=== PATIENT | female | born 1940 | race Caucasian/White ===

== ENCOUNTER 2017-12-12 00:16 | Emergency (ER) | payer OTHER, MEDICARE ==
--- OUTSIDE RECORDS SUMMARY | 2017-12-12 00:19 | XMS REPORT | Clinical Summary ---
:1940 Author Organization [facility] Address [address] [place] [address] Care Team Providers Name Role Phone Danielle Licea Primary Care Provider Allergies No Known Allergies Current Medications Prescription Sig. Disp. Refills Start Date End Date Status levothyroxine Take 75 mcg by mouth Active (SYNTHROID, LEVOTHROID) every morning. 75 MCG tablet coenzyme Q10 100 mg Take 100 mg by mouth Active capsule daily. amlodipine-benazepril Take 1 capsule by Active (LOTREL) 10-40 mg per mouth daily. capsule folic acid (FOLVITE) 400 Take 400 mcg by Active MCG tablet mouth daily. multivitamin with Take 1 tablet by Active minerals tablet mouth daily. cyanocobalamin, vitamin Place 1 tablet under Active B-12, 2,500 mcg tablet, the tongue daily. sublingual metoprolol tartrate Take 50 mg by mouth Active (LOPRESSOR) 50 MG tablet 2 (two) times a day. Prescribed 1.5 tabs (75mg) 2 times daily. Patient takes 1 tablet 2 times daily VITAMIN B COMPLEX (B Take 1 tablet by Active COMPLEX ORAL) mouth daily. zinc 50 mg tablet Take 25 mg by mouth Active daily. ascorbic acid (VITAMIN Take 1,000 mg by Active C) 500 MG tablet mouth daily. LACTOBACILLUS Take 1 tablet by Active ACIDOPHILUS (ACIDOPHILUS mouth daily. ORAL) magnesium oxide (MAG-OX) Take 400 mg by mouth Active 400 mg tablet daily. Active Problems Problem Noted Date Pleural effusion, right 07/02/2016 Hiatal hernia 05/15/2016 Anemia 02/04/2016 Syncope 02/04/2016 H/O: upper GI bleed 02/04/2016 Essential hypertension 02/04/2016 Chronic diastolic congestive heart failure 02/04/2016 Iron deficiency anemia 02/04/2016 Peptic ulcer of stomach 10/02/2015 Upper gastrointestinal hemorrhage 09/17/2015 Adult body mass index greater than 30 09/17/2015 Hypothyroidism 09/17/2015 Gastrointestinal hemorrhage 09/16/2015 Encounters Date Type Specialty Care Team Description 08/16/2017 Abstract Cardiothoracic Surgery Jc Berkowitz MD after 12/11/2016 Social History Tobacco Use Types Packs/Day Years Used Date Never Assessed Sex Assigned at Date Recorded Not on file Last Filed Vital Signs Not on file Plan of Treatment Health Maintenance Due Date Last Done Comments COLONOSCOPY 1992 MAMMOGRAM 1992 ZOSTER VACCINE 2002 PNEUMOCOCCAL POLYSACCHARIDE VACCINE AGE 65 AND OVER 2007 PNEUMOCOCCAL-13 2007 INFLUENZA VACCINE 04/13/2017 Implants Implanted Type Area Gum Cook Device Expiration Model / Identifier Date Serial / Lot [facility] Vasclr Ptfe 1.2x10cm 1.65mm - [id number] Vascular N/A: N/A BARD PERIPHERAL [id number] / Implanted: 05/15/2016 (Quantity not on file) Graft VASCULAR / Results Not on fileafter 12/11/2016 Insurance Payer Benefit Plan / Group Subscriber ID Type Phone Address MEDICARE MEDICARE PART A AND B xxxxxxxxxx [place], [place] AARP AARP SUPPLEMENT xxxxxxxxxxx Commercial [phone] [address] [place] [address]
[2017-12-12 01:24] LABS: Absolute Lymphocytes (CBC) 0.7 K/uL (0.7-4.9); Absolute Monocytes 0.7 K/uL (0.1-1.3); Absolute Neutrophil 10.6 K/uL (1.8-8.0); Basophils % 0.4 % (0-1.3); Eosinophils % 0.1 % (0-4.4); Hematocrit 40.7 % (36.0-45.0); Lymphocytes % 5.5 % (15.3-44.8); MCH 29.4 pg (27.0-35.0); MCV 88.4 fL (80-100); MPV 9.4 fL (7.6-11.3); Monocytes % 5.7 % (3.3-12.3)
[2017-12-12] MEDS ORDERED: PANTOPRAZOLE 40 MG INJ ONE (01:35)
[2017-12-12] MEDS ORDERED: ONDANSETRON 4 MG/2 ML VIAL ONE (01:35)
[2017-12-12 01:50] LABS: Potassium 3.3 mEq/L (3.6-5.0)
[2017-12-12 01:56] LABS: Bilirubin Direct 0.2 mg/dL (0-0.2); Bilirubin Total 1.2 mg/dL (0.3-1.2); Magnesium 2.1 mg/dL (1.8-2.5); Protein, Total 7.7 g/dL (6.0-8.3)
[2017-12-12 01:59] LABS: CKMB Creatine Kinase MB 3.4 ng/ml (0.3-4.0)
[2017-12-12 02:28] LABS: Protime INR 1.22
[2017-12-12] MEDS ORDERED: NA CHLORIDE 0.9% 1,000 ML ONE (03:35)
[2017-12-12 03:57] LABS: Blood Morphology Comment NOT SEEN (NOT SEEN); Platelet Estimate ADEQ
[2017-12-12 04:22] LABS: Urine Blood 2+ (NEG); Urine Glucose NEGATIVE (NEG); Urine Protein TRACE (NEG); Urine Specific Gravity 1.015 (1.005-1.030); Urine pH 5.5 (5.0-7.0)
[2017-12-12] MEDS ORDERED: POTASSIUM 25 MEQ EFFERV TAB ONE (04:30)
[2017-12-12 04:34] LABS: Urine RBC <5 /HPF (NONE SEEN)
--- NOTE | 2017-12-12 04:34 | EDPHYS ---
Physician Documentation [facility] Name: Rona Michel Age: 77 yrs Sex: Female : 1940 Arrival Date: 12/12/2017 Time: 00:19 Bed 19 Private MD: Guido Al ED Physician Zan Melgoza HPI: 12/12 01:18 This 77 yrs old Female presents to ER via Wheelchair with complaints of cp Black/Tarry Stools, General Weakness, reflux. 01:18 The patient presents to the emergency department with dark stools. cp 01:18 Onset: The symptoms/episode began/occurred 5 day(s) ago. Context: the patient possible cp upper GI bleed. Associate signs and symptoms: Pertinent positives: fatigue, general weakness. yes, when diagnosed with anemia from upper GI bleed. Historical: - Allergies: 01:11 No Known Allergies; lp1 - Home Meds: 01:11 amlodipine-benazepril 10-40 mg Oral cap once daily [Active]; ascorbic acid (vitamin C) lp1 1,000 mg oral tab daily [Active]; B Complex Oral daily [Active]; coenzyme Q10 100 mg Oral cap daily [Active]; Vitamin B-12 2500 mcg Oral daily [Active]; folic acid 400 mcg Oral tab once daily [Active]; levothyroxine 75 mcg tab once daily [Active]; magnesium oxide 400 mg Oral cap daily [Active]; metoprolol tartrate 50 mg Oral tab once daily [Active]; zinc sulfate 220 (50) mg oral cap 110 mg daily [Active]; docusate sodium 100 mg Oral cap 2 times per day [Active]; - PMHx: 01:11 CHF; Hypertension; Melanoma; lp1 - PSHx: 01:11 Tonsillectomy; Bowel repair; lp1 - Immunization history:: Adult Immunizations up to date. - Social history:: Smoking status: Patient/guardian denies using tobacco. ROS: 01:25 Constitutional: Positive for fatigue, Negative for body aches, chills, fever, poor PO cp intake. 01:25 Eyes: Negative for injury, pain, redness, and discharge. cp 01:25 ENT: Negative for drainage from ear(s), ear pain, sore throat, difficulty swallowing, difficulty handling secretions. 01:25 Cardiovascular: Negative for chest pain, edema, palpitations. 01:25 Respiratory: Positive for shortness of breath, on exertion. Negative for cough, wheezing. 01:25 Abdomen/GI: Positive for abdominal pain, diarrhea, black/tarry stool, Negative for vomiting, constipation, anorexia. 01:25 Back: Negative for pain at rest, pain with movement, radiated pain. 01:25 : Negative for urinary symptoms. 01:25 Skin: Negative for cellulitis, rash. 01:25 Neuro: Negative for altered mental status, headache, syncope, near syncope. 01:25 All other systems are negative. Exam: 01:33 Constitutional: The patient appears in no acute distress, alert, awake, cp non-diaphoretic, non-toxic, well developed, well nourished, obese. 01:33 Head/Face: Normocephalic, atraumatic. cp 01:35 ECG was reviewed by the Attending Physician. cp 01:35 Eyes: Pupils equal round and reactive to light, extra-ocular motions intact. Lids and cp lashes normal. Conjunctiva and sclera are non-icteric and not injected. Cornea within normal limits. Periorbital areas with no swelling, redness, or edema. ENT: Nares patent. No nasal discharge, no septal abnormalities noted. Tympanic membranes are normal and external auditory canals are clear. Oropharynx with no redness, swelling, or masses, exudates, or evidence of obstruction, uvula midline. Mucous membranes moist. Neck: Trachea midline, no thyromegaly or masses palpated, and no cervical lymphadenopathy. Supple, full range of motion without nuchal rigidity, or vertebral point tenderness. No Meningismus. Chest/axilla: Normal chest wall appearance and motion. Nontender with no deformity. No lesions are appreciated. 01:35 Cardiovascular: Rate: normal, Rhythm: regular, Heart sounds: murmur, not appreciated, cp rub, not appreciated, gallop, not appreciated, Edema: is not appreciated, JVD: is not appreciated. 01:35 Respiratory: the patient does not display signs of respiratory distress, Respirations: normal, no use of accessory muscles, no retractions, no splinting, no tachypnea, labored breathing, is not present, Breath sounds: bronchial sounds, are not appreciated, decreased breath sounds, that are mild, are located in both bases, wheezing: is not appreciated. 01:35 Abdomen/GI: Inspection: obese Bowel sounds: active, all quadrants, Palpation: soft, in all quadrants, mild abdominal tenderness, in the epigastric area, rebound tenderness, is not appreciated, voluntary guarding, is not appreciated, involuntary guarding, is not appreciated. 01:35 Back: pain, is absent. 01:35 Skin: cellulitis, is not appreciated, no rash present. 01:35 Neuro: Orientation: to person, place \T\ time. Mentation: lucid, able to follow commands, Cerebellar function: is grossly normal, Motor: moves all fours, strength is normal, Sensation: no obvious gross deficits. Vital Signs: 00:58 BP 128 / 60; Pulse 70; Resp 18; Temp 98.8(O); Pulse Ox 97% on R/A; Weight 95.25 kg; lp1 Height 5 ft. 2 in. (157.48 cm); 01:47 BP 126 / 43; Pulse 70; Resp 14; Pulse Ox 99% on R/A; lp1 03:00 BP 107 / 82; Pulse 72; Resp 16; Pulse Ox 96% on R/A; lp1 04:00 BP 106 / 54; Pulse 72; Resp 16; Pulse Ox 97% on R/A; lp1 00:58 Body Mass Index 38.41 (95.25 kg, 157.48 cm) lp1 MDM: 00:40 Patient medically screened. cp 01:00 Differential diagnosis: peptic ulcer disease, gastritis, UTI, electrolyte abnormality, cp cardiac arrythmia. 04:25 Data reviewed: vital signs, nurses notes, lab test result(s), EKG, radiologic studies, cp CT scan, plain films. 04:25 Test interpretation: by ED physician or midlevel provider: ECG, plain radiologic cp studies. 04:45 Counseling: I had a detailed discussion with the patient and/or guardian regarding: the cp historical points, exam findings, and any diagnostic results supporting the discharge/admit diagnosis, lab results, radiology results, the need for outpatient follow up, an retail director, to return to the emergency department if symptoms worsen or persist or if there are any questions or concerns that arise at home. 04:45 Response to treatment: the patient's symptoms have mildly improved after treatment, and cp as a result, I will discharge patient. 14:53 ED course: Called and spoke with pt regarding Dr Olmos's CT findings and kb recommendation for MRI. Pt will follow up with Dr Al.. 12/12 00:50 Order name: Basic Metabolic Panel; Complete Time: 02:12 cp 12/12 02:12 Interpretation: Normal except: NA 130; K 3.3; CL 89; GLUC 137; CRE 1.02; GFR 53. cp 12/12 00:50 Order name: BNP; Complete Time: 02:12 cp 12/12 00:50 Order name: CBC with Diff; Complete Time: 04:04 cp 12/12 02:13 Interpretation: Normal except: WBC 12.1; MCV 88.4; FIONA% 88.3; LYM% 5.5; NEUT A 10.6. cp 12/12 00:50 Order name: Ckmb; Complete Time: 02:12 cp 12/12 00:50 Order name: CPK; Complete Time: 02:12 cp 12/12 00:50 Order name: LFT's; Complete Time: 02:12 cp 12/12 02:56 Interpretation: Normal except: GLOB 3.7. cp 12/12 00:50 Order name: Magnesium; Complete Time: 02:12 cp 12/12 00:50 Order name: PT-INR; Complete Time: 02:55 cp 12/12 02:56 Interpretation: PT 14.4; Reviewed. cp 12/12 00:50 Order name: Ptt, Activated; Complete Time: 02:55 cp 12/12 00:50 Order name: Troponin (emerg Dept Use Only); Complete Time: 02:12 cp 12/12 02:57 Interpretation: TROPED < 0.03; Reviewed. cp 12/12 00:50 Order name: Lipase; Complete Time: 02:12 cp 12/12 02:56 Interpretation: LIP 13; Reviewed. cp 12/12 00:50 Order name: Type And Screen; Complete Time: 14:46 cp 12/12 01:34 Order name: Manual Differential; Complete Time: 04:04 EDMS 12/12 04:04 Interpretation: Normal except: SEGS 83; BANDS [F] 5; LYM 4. cp 12/12 02:13 Order name: Urine Microscopic Only; Complete Time: 14:46 cp 12/12 00:50 Order name: XRAY Chest (1 view); Complete Time: 14:46 cp 12/12 00:50 Order name: EKG; Complete Time: 00:51 cp 12/12 00:50 Order name: Cardiac monitoring; Complete Time: 01:47 cp 12/12 00:50 Order name: EKG - Nurse/Tech; Complete Time: 01:47 cp 12/12 00:50 Order name: IV Saline Lock; Complete Time: 01:47 cp 12/12 00:50 Order name: Labs collected and sent; Complete Time: 01:47 cp 12/12 00:50 Order name: O2 Per Protocol; Complete Time: 01:47 cp 12/12 00:50 Order name: O2 Sat Monitoring; Complete Time: 01:47 cp 12/12 01:36 Order name: CT Abd/Pelvis - W/Contrast: black stools; Complete Time: 14:46 cp 12/12 03:25 Order name: Urine Dipstick--Ancillary (enter results); Complete Time: 04:23 rg2 12/12 04:24 Interpretation: Normal except: UBLD 2+; UESTR TRACE. cp 12/12 04:36 Order name: Urine Culture EDMS 12/12 00:50 Order name: Urine Dipstick-Ancillary (obtain specimen); Complete Time: 03:44 cp EC:35 Rate is 68 beats/min. Rhythm is regular. CO interval is normal. QRS interval is normal. cp QT interval is normal. No ST changes noted. Interpreted by me. Reviewed by me. Administered Medications: Discontinued: NS 0.9% 1000 ml IV at 1 bolus Per protocol; 1000 mL bolus 01:20 Drug: ProTONIX 40 mg Route: IVP; Site: right antecubital; lp1 03:43 Follow up: Response: No adverse reaction lp1 02:40 Not Given (Patient Refused): Zofran 4 mg IVP once; over 2 minutes lp1 03:15 Drug: NS 0.9% 1000 ml Route: IV; Rate: 1 bolus; Site: right antecubital; lp1 05:00 Drug: Potassium Effervescent Tablet 25 mEq Route: PO; lp1 05:01 Follow up: Response: Medication administered at discharge. lp1 05:01 Drug: LevaQUIN 750 mg Route: PO; lp1 05:01 Follow up: Response: Medication administered at discharge. lp1 Point of Care Testing: Guaiac: 01:13 Stool Guaiac: Negative; Stool Hemoccult Control: Pass; lp1 Disposition: 05:04 Co-signature as Attending Physician, Zan Melgoza MD. pkjennie Disposition: 12/12/17 04:33 Discharged to Home. Impression: Pneumonia due to other specified bacteria. - Condition is Stable. - Discharge Instructions: Pneumonia, Adult. - Prescriptions for Levaquin 750 mg Oral Tablet - take 1 tablet by ORAL route once daily for 10 days continue morning of 12-13-2017; 9 tablet. - Medication Reconciliation Form, Thank You Letter, Antibiotic Education, Prescription Opioid Use form. - Follow up: Guido Al MD; When: 48 Hours; Reason: Recheck today's complaints. - Problem is new. - Symptoms have improved. Signatures: Dispatcher [employer] EDMS Katy Munson, WRAPPER CASER-C WRAPPER CASER-Zan Aguirre MD MD pkl Aline Zuniga, RN RN lp1 Gabo Ledezma PA PA cp
--- NOTE | 2017-12-12 04:34 | ER ---
Nurse's Notes [facility] Name: Rona Michel Age: 77 yrs Sex: Female : 1940 Arrival Date: 12/12/2017 Time: 00:19 Bed 19 Private MD: Guido Al Diagnosis: Pneumonia due to other specified bacteria Presentation: 12/12 00:55 Presenting complaint: Patient states: Black stool x 5 days, with increased fatigue and lp1 shortness of breath on exertion; Hx of bowel repair. Transition of care: patient was not received from another setting of care. Onset of symptoms was December 12, 2017. Care prior to arrival: None. 00:55 Method Of Arrival: Wheelchair lp1 00:55 Acuity: ALICIA 3 lp1 Historical: - Allergies: 01:11 No Known Allergies; lp1 - Home Meds: 01:11 amlodipine-benazepril 10-40 mg Oral cap once daily [Active]; ascorbic acid (vitamin C) lp1 1,000 mg oral tab daily [Active]; B Complex Oral daily [Active]; coenzyme Q10 100 mg Oral cap daily [Active]; Vitamin B-12 2500 mcg Oral daily [Active]; folic acid 400 mcg Oral tab once daily [Active]; levothyroxine 75 mcg tab once daily [Active]; magnesium oxide 400 mg Oral cap daily [Active]; metoprolol tartrate 50 mg Oral tab once daily [Active]; zinc sulfate 220 (50) mg oral cap 110 mg daily [Active]; docusate sodium 100 mg Oral cap 2 times per day [Active]; - PMHx: 01:11 CHF; Hypertension; Melanoma; lp1 - PSHx: 01:11 Tonsillectomy; Bowel repair; lp1 - Immunization history:: Adult Immunizations up to date. - Social history:: Smoking status: Patient/guardian denies using tobacco. Screenin:22 Abuse screen: Denies threats or abuse. Denies injuries from another. Nutritional lp1 screening: No deficits noted. Tuberculosis screening: No symptoms or risk factors identified. Fall Risk None identified. Assessment: 01:21 General: Appears in no apparent distress. Behavior is calm, cooperative, appropriate lp1 for age. Pain: Complains of pain in chest Pain currently is 4 out of 10 on a pain scale. Aggravated by increased activity. Neuro: Level of Consciousness is awake, alert, obeys commands, Oriented to person, place, time, situation. Cardiovascular: Patient's skin is warm and dry. Rhythm is sinus rhythm. Respiratory: Airway is patent Respiratory effort is even, unlabored, Respiratory pattern is regular, symmetrical, Breath sounds are clear bilaterally. GI: Abdomen is non-distended, Bowel sounds present X 4 quads. Reports Black stools x5 days. : No signs and/or symptoms were reported regarding the genitourinary system. EENT: No signs and/or symptoms were reported regarding the EENT system. Derm: Skin is pink, warm \T\ dry. Musculoskeletal: Circulation, motion, and sensation intact. 02:36 Reassessment: Patient appears in no apparent distress at this time. No changes from lp1 previously documented assessment. Patient and/or family updated on plan of care and expected duration. Pain level reassessed. 03:45 Reassessment: Patient appears in no apparent distress at this time. Patient and/or lp1 family updated on plan of care and expected duration. Pain level reassessed. Patient resting, eyes closed, respirations unlabored. 05:03 Reassessment: Patient and/or family updated on plan of care and expected duration. Pain lp1 level reassessed. Patient is alert, oriented x 3, equal unlabored respirations, skin warm/dry/pink. Patient states feeling better. Vital Signs: 00:58 BP 128 / 60; Pulse 70; Resp 18; Temp 98.8(O); Pulse Ox 97% on R/A; Weight 95.25 kg; lp1 Height 5 ft. 2 in. (157.48 cm); 01:47 BP 126 / 43; Pulse 70; Resp 14; Pulse Ox 99% on R/A; lp1 03:00 BP 107 / 82; Pulse 72; Resp 16; Pulse Ox 96% on R/A; lp1 04:00 BP 106 / 54; Pulse 72; Resp 16; Pulse Ox 97% on R/A; lp1 00:58 Body Mass Index 38.41 (95.25 kg, 157.48 cm) lp1 ED Course: 00:19 Patient arrived in ED. am2 00:20 Guido Al MD is Private Physician. am2 00:40 Gabo Ledezma PA is PHCP. cp 00:40 Zan Melgoza MD is Attending Physician. cp 00:55 Aline Zuniga, RN is Primary Nurse. lp1 00:57 Triage completed. lp1 00:57 Arm band placed on left wrist. lp1 01:11 X-ray completed. Portable x-ray completed in exam room. Patient tolerated procedure la2 well. 01:11 XRAY Chest (1 view) In Process Unspecified. EDMS 01:12 Inserted saline lock: 18 gauge in right antecubital area, using aseptic technique. lp1 Blood collected. By tech. Bebeto 01:13 Served as a animal sticker during rectal exam. lp1 01:22 Patient has correct armband on for positive identification. Bed in low position. Call lp1 light in reach. cardiac monitor technician on. Pulse ox on. NIBP on. 02:[address] via stretcher. lp1 02:42 CT completed. Patient tolerated procedure well. bq 02:48 CT Abd/Pelvis - W/Contrast: black stools In Process Unspecified. EDMS 02:50 Patient moved back from CT. bq 04:32 Guido Al MD is Referral Physician. cp 05:03 IV discontinued, No redness/swelling at site. Pressure dressing applied. lp1 Administered Medications: Discontinued: NS 0.9% 1000 ml IV at 1 bolus Per protocol; 1000 mL bolus 01:20 Drug: ProTONIX 40 mg Route: IVP; Site: right antecubital; lp1 03:43 Follow up: Response: No adverse reaction lp1 02:40 Not Given (Patient Refused): Zofran 4 mg IVP once; over 2 minutes lp1 03:15 Drug: NS 0.9% 1000 ml Route: IV; Rate: 1 bolus; Site: right antecubital; lp1 05:00 Drug: Potassium Effervescent Tablet 25 mEq Route: PO; lp1 05:01 Follow up: Response: Medication administered at discharge. lp1 05:01 Drug: LevaQUIN 750 mg Route: PO; lp1 05:01 Follow up: Response: Medication administered at discharge. lp1 Point of Care Testing: Guaiac: 01:13 Stool Guaiac: Negative; Stool Hemoccult Control: Pass; lp1 Outcome: 04:33 Discharge ordered by . cp 05:07 Discharged to home ambulatory, with family. lp1 05:07 Condition: good 05:07 Discharge instructions given to patient, Instructed on discharge instructions, follow up and referral plans. medication usage, Demonstrated understanding of instructions, follow-up care, medications, Prescriptions given X 1. 05:12 Patient left the ED. lp1 Signatures: Dispatcher [employer] EDMariama Romo Laura RN RN lp1 Gabo Ledezma PA PA cp Moreno, Amanda am2 Heather Sherman2 Corrections: (The following items were deleted from the chart) 01:21 01:12 Inserted saline lock: 20 gauge in right antecubital area, using aseptic lp1 technique. Blood collected. By nelly Tate lp1
[2017-12-12 04:35] LABS: Urine Bacteria >50 /HPF (<20); Urine Culture Reflex Order REFLEXED
[2017-12-12] MEDS ORDERED: levoFLOXacin 750 MG TAB ONE (05:03)
[2017-12-12 05:15] VITALS: TEMP 98.8
[2017-12-12 05:18] VITALS: BP 106/54; O2SAT 97
--- NOTE | 2017-12-12 11:06 | RAD REPORT ---
EXAM DESCRIPTION: C[place]lle Single View12/12/2017 1:11 am CLINICAL HISTORY: Shortness of breath COMPARISON: CT scan on the same date FINDINGS: Right lower lobe opacities seen on the CT scan on the same date are not as well visualize d on this examination as they are obscured by heart. The left lung appears clear. The heart is borderline enlarged
--- NOTE | 2017-12-12 14:06 | RAD REPORT ---
EXAM DESCRIPTION: CT - Abdomen Pelvis W Contrast - 12/12/2017 9:05 am CLINICAL HISTORY: Abdominal pain with nausea and vomiting. Epigastric pain. Surgery date was months bowel resection COMPARISON: 2013 TECHNIQUE: Computed axial tomography of the abdomen pelvis was obtained. 100 cc Isovue-300 was admin istered intravenously. Oral contrast was not requested which limits evaluation of bowel.A preliminary report was generated by [employer] and reviewed prior to this dictation All CT scans are performed using dose optimization technique as appropriate and may include automated exposure control or mA/KV adjustment according to patient size. FINDINGS: A 3.8 centimeter enhancing lesion is present within the caudate lobe of the liver. It has enlarged from 2007 in which it measured 2.2 centimeters. It is equivocally slightly enlarged from the 2014 exam. Several small hepatic cysts are unchanged. Increased density within the gallbladder probably represents vicarious excretion of contrast. 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 Spleen, pancreas, adrenal and kidneys appear unremarkable. Diverticula stem from the colon without evidence diverticulitis. Appendix is normal. A right lower lobe consolidation is present. Mild right infrahilar lymphadenopathy is seen A right posterior diaphragmatic hernia contains fat. Postsurgical changes involve the stomach IMPRESSION: Right lower lobe consolidation consist with pneumonia. This should be followed until it has cleared to help exclude a post obstructive process/underlying mass. Mild right infrahilar lymphadenopathy 3.8 centimeter enhancing lesion within the caudate lobe of the liver is enlarged from 2008 and equivo macho slightly enlarged from 2014. It may represent an adenoma, hemangioma or other benign mass. A ma lignancy is doubtful. However, as it has enlarged it is recommended that the patient have an MRI of t he contrast with delayed images for further evaluation Cystic duct calculi. There is no evidence of cholecystitis. Examination was discussed with Katy Munson in the Emergency Room 2 p.m. on December 12, 2017
--- NOTE | 2017-12-13 07:11 | EKG ---
Test Date: 2017-12-12 Test Time: 01:27:27 Hospital Social Worker: SABI MEASUREMENT RESULTS: Intervals: Rate: 68 CO: 160 QRSD: 92 QT: 414 QTc: 440 [place]: P: 63 CO: 160 QRS: 7 T: 54 INTERPRETIVE STATEMENTS: Normal sinus rhythm normal ECG Compared to ECG 07/02/2016 13:12:42 no significant change from previous ECG Electronically Signed On 12-13-17 07:10:24 CDT by Alfred William
== END 2017-12-12 05:12 | disposition home or self-care (01) ==
LOC: ER 00:16
DX: J15.8 Pneumonia due to other specified bacteria (principal); R10.9 Unspecified abdominal pain; I10 Essential (primary) hypertension; I50.9 Heart failure, unspecified
CPT/HCPCS: 36415; 71045; 74177; 80048; 80076; 82550; 82553; 83690; 83735; 83880; 84484; 85025; 85610; 85730; 86850; 86900; 86901; 87086; 87088; 93005; 96374; 99285; C9113; J7030; Q9967; 81003; 81015; J2405

== ENCOUNTER 2020-10-18 07:42 | Day surgery (SDC) | payer OTHER, MEDICARE ==
--- OUTSIDE RECORDS SUMMARY | 2020-10-18 08:01 | XMS REPORT | Clinical Summary ---
:1940 Author Organization [facility] Address [address] [place] [address] Care Team Providers Name Role Phone Anuja Primary Care Provider Allergies No Known Active Allergies Medications Medication Sig Dispensed Refills Start Date End Date Status levothyroxine Take 75 mcg by 0 A ctive (SYNTHROID, mouth every LEVOTHROID) 75 MCG morning. tablet coenzyme Q10 100 mg Take 100 mg by 0 Active capsule mouth daily. amlodipine-benazepril Take 1 capsule by 0 Active (LOTREL) 10-40 mg per mouth daily. capsule folic acid (FOLVITE) Take 400 mcg by 0 Active 400 MCG tablet mouth daily. multivitamin with Take 1 tablet by 0 Active minerals tablet mouth daily. cyanocobalamin, Place 1 tablet 0 Active vitamin B-12, 2,500 under the tongue mcg tablet, sublingual daily. metoprolol tartrate Take 50 mg by 0 Active (LOPRESSOR) 50 MG mouth 2 (two) tablet times a day. Prescribed 1.5 tabs (75mg) 2 times daily. Patient takes 1 tablet 2 times daily VITAMIN B COMPLEX (B Take 1 tablet by 0 Active COMPLEX ORAL) mouth daily. zinc 50 mg tablet Take 25 mg by 0 Active mouth daily. ascorbic acid (VITAMIN Take 1,000 mg by 0 Active C) 500 MG tablet mouth daily. LACTOBACILLUS Take 1 tablet by 0 Active ACIDOPHILUS mouth daily. (ACIDOPHILUS ORAL) magnesium oxide Take 400 mg by 0 Active (MAG-OX) 400 mg tablet mouth daily. Active Problems Problem Noted Date Pleural effusion, right 07/02/2016 Hiatal hernia 05/15/2016 Anemia 02/04/2016 Syncope 02/04/2016 H/O: upper GI bleed 02/04/2016 Essential hypertension 02/04/2016 Chronic diastolic congestive heart failure 02/04/2016 Iron deficiency anemia 02/04/2016 Peptic ulcer of stomach 10/02/2015 Upper gastrointestinal hemorrhage 09/17/2015 Adult body mass index greater than 30 09/17/2015 Hypothyroidism 09/17/2015 Gastrointestinal hemorrhage 09/16/2015 Surgical History Surgery Date Site/Laterality Comments THYROIDECTOMY TONSILLECTOMY HYSTERECTOMY BREAST SURGERY REPAIR, HIATAL HERNIA, 05/15/2016 Abdomen/N/A Procedure : EGD, LAPAROSCOPIC LAPAROSCOPIC REPAIR OF HITAL HERNIA WITH TOUPET FUNDOPLIC ATION; Surgeon: Jc Berkowitz MD; Location: [facility]; Service: Thoraci c; Laterality: N/A; Medical devices from this surgery are in t he Implants section. Medical History Medical History Date Comments Hypertension CHF (congestive heart failure) (HCC) Melanoma (HCC) Anemia History of transfusion GI bleed Social History Tobacco Use Types Packs/Day Years Used Date Never Assessed Sex Assigned at Date Recorded Not on file Last Filed Vital Signs Not on file Plan of Treatment Health Maintenance Due Date Last Done Comments COVID-19 VACCINE (1 of 2) 1958 SHINGLES VACCINES (#1) 1992 65+ PNEUMOCOCCAL VACCINE (1 of 1 - PPSV23) 2007 INFLUENZA VACCINE 04/13/2020 Implants Implanted Type Area Impregnator And Drier Helper Device Shelf Model / Identifier Expiration Serial / Date Lot April Gallegos Vasclr Ptfe 1.2x10cm 1.65mm - [id number] Vascular N/A: N/A BARD PERIPHERAL [id number] / Implanted: 05/15/2016 at [facility] (Quantity not on file) Graft VASCULAR / Results Not on fileafter 10/18/2019 Insurance Payer Benefit Plan / Subscriber ID Effective Dates Phone Addre ss Type Group MEDICARE MEDICARE PART A [id number] 2007-Present [place] [facility] Medicare AND B AARP AARP SUPPLEMENT [id number] 2007-[employer] Commercial t Advance Directives For more information, please contact: [phone] Type Date Recorded Patient Free Lance 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
--- OUTSIDE RECORDS SUMMARY | 2020-10-18 08:03 | XMS REPORT | Continuity of Care Document ---
:1940 Author Organization [facility] t Address [address] [place] [address] [address] [place] [address] Care Team Providers Name Role Phone ANTONOFF Primary Care Physician Unavailable SAURABH Attending Clinician Unavailable EL Attending Clinician Unavailable BIBI Attending Clinician Unavailable BEST Attending Clinician Unavailable DAKSHA SAAVEDRA Attending Clinician Unavailable TRUDY Attending Clinician Unavailable Cristal SARAVIA Attending Clinician Unavailable SAMUEL Attending Clinician Unavailable DIMITRIS Attending Clinician Unavailable Nahid MAYS Attending Clinician Unavailable GIOVANNY Attending Clinician Unavailable AHSAN Attending Clinician Unavailable Jennifer WALKER Attending Clinician Unavailable JULIAN Attending Clinician Unavailable Xavier SAGE, Megan Attending Clinician DAKSHA SAAVEDRA Admitting Clinician Unavailable ANGUS Admitting Clinician Unavailable Megan Park MD Admitting Clinician Payers Payer Name Policy Type Policy Number Effective Date Expiration Date S maureen MEDICARE PART A [id number] 2007 AND B 00:00:00 AARP-SECONDARY [id number] 2007 ONLY 00:00:00 Problems Condition Condition Condition Status Onset Resolution Last Treating Co mments Source Name Details Category Date Date Treatment Clinician Date Pleural Pleural Disease Active 2015-09 [place] effusion, effusion, 0-20 Meth jeaneth right right 00:00: st 00 Hiatal Hiatal Disease Active [place] hernia hernia 9-02 [facility] 00:[facility]: st 00 Anemia Anemia Disease Active [place] 02-03 [facility] 00:00: st 00 Syncope Syncope Disease Active [place] 02-03 [facility] 00:00: st 00 H/O: upper H/O: upper Disease [facility] GI bleed GI bleed 5-24 Method i 00:00: st 00 Essential Essential Disease Active Trina ston hypertensi hypertensi 5-24 Me thodi on on 00:00: st 00 Chronic Chronic Disease Active [place] diastolic diastolic 5-24 Meth jeaneth congestive congestive 00:00: st heart heart 00 failure failure Iron Iron Disease Active [place] deficiency deficiency 5-24 Me thodi anemia anemia 00:00: st 00 Peptic Peptic Disease Active [place] ulcer of ulcer of 1-20 Method i stomach stomach 00:00: st 00 Upper Upper Disease Active [place] gastrointe gastrointe 1-05 Me thodi stinal stinal 00:00: st hemorrhage hemorrhage 00 Adult body Adult body Disease Active H [facility] mass index mass index 1-05 Me thodi greater greater 00:00: st than 30 than 30 00 Hypothyroi Hypothyroi Disease Active H [facility] dism dism 1-05 [facility] 00:00: st Gastrointe Gastrointe Disease Active H [facility] stinal stinal 1-04 [facility] hemorrhage hemorrhage 00:00: st 00 Allergies, Adverse Reactions, Alerts Allergy Allergy Status Severity Reaction(s) Onset Inactive Treating Comm ents Source Name Type Date Date Clinician OTHER Allergy Active [place] Sob 2019-0 MD 6-27 Anderso 00:00: n 00 OTHER Allergy Active High Sob 2019-0 MD 6-27 Anderso 00:00: n 00 OTHER Allergy Active [place] 2019-0 MD 6-27 Anderso 00:00: n 00 OTHER Allergy Active High Sob 2019-0 MD 6-27 Anderso 00:00: n 00 OTHER Allergy Active High Sob 2019-0 MD 6-27 Anderso 00:00: n 00 OTHER Allergy Active High Sob 2019-0 MD 6-27 Anderso 00:00: n 00 OTHER Allergy Active High Sob 2019-0 MD 6-27 Anderso 00:00: n 00 OTHER Allergy Active High Sob 2019-0 MD 6-27 Anderso 00:00: n 00 OTHER Allergy Active High Sob 2019-0 MD 6-27 Anderso 00:00: n 00 OTHER Allergy Active [place] Sob 2019-0 MD 6-27 Anderso 00:00: n 00 OTHER Allergy Active [place] 2019-0 MD 6- Anderso 00:00: n 00 OTHER Allergy Active High Sob MD 6- Anderso 00:00: n 00 Social History Social Habit Start Date Stop Date Quantity Comments Source Sex Assigned At Trina davila Muslim Medications Ordered Filled Start Stop Current Ordering Indication Dosage Frequency Signature Comments Components Source Medication Medication Date Date Medication? Clinician (SIG) Name Name levothyroxi 2015-09 Yes 75ug QD Take 75 Trina ston ne 0-22 mcg by [facility] (SYNTHROID, 13:47: mouth st LEVOTHROID) 33 every 75 MCG morning. tablet coenzyme 2015-09 Yes 100mg QD Take 100 [place] Q10 100 mg 0-22 mg by [facility] capsule 13:47: mouth st 33 daily. amlodipine- 2015-09 Yes 1{capsu QD Take 1 [place] benazepril 0-22 le} capsule by Met del angel (LOTREL) 13:47: mouth st 10-40 mg 33 daily. per capsule folic acid 2015-09 Yes 400ug QD Take 400 [place] (FOLVITE) 0-22 mcg by [facility] 400 MCG 13:47: mouth st tablet 33 daily. multivitami 2015-09 Yes 1{tbl} QD Take 1 [place] n with 0-22 tablet by [facility] minerals 13:47: mouth st tablet 33 daily. cyanocobala 2015-09 Yes 1{tbl} QD Place 1 [place] min, 0-22 tablet [facility] vitamin 13:47: under the st B-12, 2,500 33 tongue mcg tablet, daily. sublingual metoprolol 2015-09 Yes 50mg Q.5D Take 50 mg [place] tartrate 0-22 by mouth 2 Metho di (LOPRESSOR) 13:47: (two) st 50 MG 33 times a tablet day. Prescribed 1.5 tabs (75mg) 2 times daily. Patient takes 1 tablet 2 times daily VITAMIN B 2015-09 Yes 1{tbl} QD Take 1 [place] COMPLEX (B 0-22 tablet by Meth jeaneth COMPLEX 13:47: mouth st ORAL) 33 daily. zinc 50 mg 2015-09 Yes 25mg QD Take 25 mg [place] tablet 0-22 by mouth [facility] 13:47: daily. st 33 ascorbic 2015-09 Yes 1000mg QD Take 1,000 [place] acid 0-22 mg by [facility] (VITAMIN C) 13:47: mouth st 500 MG 33 daily. tablet LACTOBACILL 2015-09 Yes 1{tbl} QD Take 1 [place] US 0-22 tablet by [facility] ACIDOPHILUS 13:47: mouth st (ACIDOPHILU 33 daily. S ORAL) magnesium 2015-09 Yes 400mg QD Take 400 Trina ston oxide 0-22 mg by [facility] (MAG-OX) 13:47: mouth st 400 mg 33 daily. tablet Vital Signs Vital Name Observation Time Observation Value Comments Source WEIGHT 2020-10-02 05:33:14 101.4 kg HEIGHT 2020-09-23 21:51:00 154 cm WEIGHT 2020-09-02 14:55:00 94.9 kg HEIGHT 2020-09-02 10:29:39 157 cm WEIGHT 2020-09-02 10:29:39 94.45 kg HEIGHT 2020-08-26 09:00:26 157 cm WEIGHT 2020-08-26 09:00:26 95.3 kg HEIGHT 2020-08-05 14:37:03 157 cm WEIGHT 2020-08-05 14:37:03 94.4 kg WEIGHT 2020-08-05 13:04:00 94.4 kg WEIGHT 2020-07-29 12:13:23 95.1 kg HEIGHT 2020-07-29 08:33:37 157 cm WEIGHT 2020-07-29 08:33:37 95.3 kg WEIGHT 2020-07-29 10:05:39 95.3 kg WEIGHT 2020-07-22 05:41:00 106.6 kg HEIGHT 2020-07-15 21:12:00 157 cm HEIGHT 2020-07-15 08:25:00 157 cm WEIGHT 2020-07-15 08:25:00 99.8 kg WEIGHT 2020-07-12 10:30:00 98.1 kg HEIGHT 2020-07-12 08:02:00 157 cm WEIGHT 2020-07-12 08:02:00 98.1 kg WEIGHT 2020-07-10 11:26:00 98.1 kg HEIGHT 2020-07-10 09:37:00 157 cm WEIGHT 2020-07-10 09:37:00 97.7 kg WEIGHT 2020-07-08 10:30:00 97.2 kg HEIGHT 2020-07-08 08:30:48 157 cm WEIGHT 2020-07-08 08:30:48 97.2 kg HEIGHT 2020-06-12 09:19:53 157 cm WEIGHT 2020-06-12 09:19:53 97.4 kg WEIGHT 2020-05-22 13:05:00 99.1 kg HEIGHT 2020-05-22 09:31:55 157 cm WEIGHT 2020-05-22 09:31:55 98.6 kg HEIGHT 2020-04-24 08:05:50 157 cm WEIGHT 2020-04-24 08:05:50 99 kg HEIGHT 2020-04-17 09:47:00 157 cm WEIGHT 2020-04-17 09:47:00 99.4 kg WEIGHT 2020-04-17 13:33:48 99.4 kg HEIGHT 2020-04-01 11:05:41 157 cm WEIGHT 2020-04-01 11:05:41 99.7 kg WEIGHT 2020-03-20 10:32:00 100.8 kg WEIGHT 2020-03-20 00:00:00 100.8 kg HEIGHT 2020-03-20 00:00:00 157 cm WEIGHT 2020-03-20 00:00:00 100.5 kg Procedures This patient has no known procedures. Plan of Care Planned Activity Planned Date Details Comments Source Future Scheduled 2020-04-13 INFLUENZA VACCINE [place] [facility] 00:00:00 [code = INFLUENZA VACCINE] Future Scheduled 2007 65+ PNEUMOCOCCAL [place] [facility] 00:00:00 VACCINE (1 of 1 - PPSV23) [code = 65+ PNEUMOCOCCAL VACCINE (1 of 1 - PPSV23)] Future Scheduled 1992 SHINGLES VACCINES (#1) [place] [facility] 00:00:00 [code = SHINGLES VACCINES (#1)] Future Scheduled 1958 COVID-19 VACCINE (1 of [place] [facility] 00:00:00 2) [code = COVID-19 VACCINE (1 of 2)] Encounters Start End Encounter Admission Attending Care Care Encounter Source Date/Time Date/Time Type Type Clinicians Facility Department ID 2020-04-15 Outpatient ROSANA WAYNE [id number] 14:16:23 Anderso n 2020-03-09 Outpatient PATRICIA WILEY MDA, MDA [id number] 08:05:07 Anderso n 2020-10-12 2020-10-12 Outpatient MIRNA GALLEGOS MDA MDA [id number] 11:09:09 11:26:53 DEVI yao 2020-09-23 2020-10-02 Inpatient ER BIBI, MDA ICT Phase 1 1 [id number] 15:22:00 16:19:00 YING Anderson o najma 2020-10-01 2020-10-01 Inpatient BEST, MDA MDA [id number] 11:10:11 16:41:36 DOROTA yao 2020-09-30 2020-09-30 Inpatient BIBI, MDA MDA [id number] 18:59:04 19:29:30 YING yao 2020-09-24 2020-09-24 Inpatient RODON MDA MDA [id number] MD 03:33:45 03:50:06 Justin SAAVEDRA 2020-09-02 2020-09-02 Outpatient EL SAURABH, PATRICIA MDA MDA [id number] 11:30:00 23:59:00 Justinsanti yao 2020-09-02 2020-09-02 Outpatient EL SAURABH, PATRICIA MDA MDA [id number] 10:25:11 12:58:05 Justin o najma 2020-09-02 2020-09-02 Outpatient EL SAURABH, PATRICIA MDA MDA [id number] 06:15:00 11:29:00 Justin o najma 2020-09-02 2020-09-02 Outpatient EL MDA MDA [id number] 08:26:44 08:26:44 Justin o najma 2020-09-02 2020-09-02 Outpatient EL MDA MDA [id number] 08:26:40 08:26:40 Justin o najma 2020-08-30 2020-08-30 Outpatient EL BRINK, MDA MDA [id number] MD 10:35:00 23:59:00 GIOVANY Andujarers o najma 2020-08-30 2020-08-30 Outpatient EL BRINK, MDA MDA [id number] MD 06:59:24 10:34:00 GIOVANY Justin o najma 2020-08-30 2020-08-30 Outpatient EL SARAVIA, MDA MDA [id number] 06:15:00 06:58:00 ROBERT Anderson o najma 2020-08-26 2020-08-26 Outpatient EL BRINK, MDA MDA [id number] MD 07:15:00 23:59:00 GIOVANY Justin o n 2020-08-26 2020-08-26 Outpatient EL SAURABH, PATRICIA MDA MDA [id number] MD 08:50:35 10:07:05 Justin o n 2020-08-19 2020-08-19 Outpatient EL ANTONOFF, MDA MDA [id number] MD 10:15:00 23:59:00 DOROTA Justin o n 2020-08-19 2020-08-19 Outpatient EL BRINK, MDA MDA [id number] MD 07:15:00 10:14:00 GIOVANY Justin o n 2020-08-12 2020-08-12 Outpatient EL BRINK, MDA MDA [id number] MD 06:15:00 23:59:00 GIOVANY Justin o n 2020-08-05 2020-08-05 Outpatient EL ENRIQUE BAKERNG MDA MDA [id number] MD 14:25:34 15:37:53 Justin o n 2020-08-05 2020-08-05 Outpatient EL SAURABH, PATRICIA MDA MDA [id number] MD 12:00:00 12:00:00 Justin o najma 2020-08-05 2020-08-05 Outpatient EL SAURABH, PATRICIA MDA MDA [id number] MD 12:00:00 12:00:00 Justin o n 2020-08-05 2020-08-05 Outpatient EL BRINK, MDA MDA [id number] MD 09:30:00 11:59:00 GIOVANY Justin o n 2020-08-05 2020-08-05 Outpatient EL SAURABH, PATRICIA MDA MDA [id number] MD 09:11:57 09:29:00 Justin o n 2020-07-29 2020-07-29 Outpatient EL HUMELVIN AURIS MDA MDA [id number] MD 11:36:46 14:22:42 Justin o n 2020-07-29 2020-07-29 Outpatient EL BRINK, MDA MDA [id number] MD 07:58:57 09:49:46 GIOVANY Justin o n 2020-07-29 2020-07-29 Outpatient EL SAURABH, PATRICIA MDA MDA [id number] MD 09:00:00 09:00:00 Justin o najma 2020-07-29 2020-07-29 Outpatient EL SAURABH, PATRICIA MDA MDA [id number] MD 09:00:00 09:00:00 Justin o n 2020-07-29 2020-07-29 Outpatient EL SAURABH, PATRICIA MDA MDA [id number] MD 06:15:00 08:59:00 Justin o n 2020-07-15 2020-07-22 Inpatient UR DUMBRAVA, MDA ICT Phase 1 10 [id number] MD 08:37:00 15:40:00 ECRUSTY Andujare rso n 2020-07-15 2020-07-15 Outpatient EL SAURABH, PATRICIA MDA MDA [id number] MD 10:30:00 23:59:00 Justin o n 2020-07-15 2020-07-15 Outpatient EL BRINK, MDA MDA [id number] MD 08:13:02 08:53:46 GIOVANY Justin o n 2020-07-15 2020-07-15 Outpatient EL SAURABH, PATRICIA MDA MDA [id number] MD 06:30:00 08:36:00 Justin o n 2020-07-12 2020-07-12 Outpatient EL SAURABH, PATRICIA MDA MDA [id number] MD 08:37:58 23:59:00 Justin o n 2020-07-12 2020-07-12 Outpatient EL SAURABH, PATRICIA MDA MDA [id number] MD 08:37:32 23:59:00 Justin o n 2020-07-12 2020-07-12 Outpatient EL BRINK, MDA MDA [id number] MD 07:53:37 08:50:09 GIOVANY Justin o n 2020-07-12 2020-07-12 Outpatient EL BRINK, MDA MDA [id number] MD 06:13:59 08:36:00 GIOVANY Justin o n 2020-07-10 2020-07-10 Outpatient EL SAURABH, PATRICIA MDA MDA [id number] MD 10:19:31 23:59:00 Justin o n 2020-07-10 2020-07-10 Outpatient EL SAURABH, PATRICIA MDA MDA [id number] MD 10:18:11 10:18:11 Justin o n 2020-07-10 2020-07-10 Outpatient EL BRINK, MDA MDA [id number] MD 09:26:15 10:17:12 GIOVANY Justin o n 2020-07-10 2020-07-10 Outpatient EL BRINK, MDA MDA [id number] MD 07:29:26 10:17:00 GIOVANY Justin o n 2020-07-08 2020-07-08 Outpatient EL BRINK, MDA MDA [id number] MD 09:30:00 23:59:00 GIOVANY Justin o n 2020-07-08 2020-07-08 Outpatient EL SAURABH, PATRICIA MDA MDA [id number] MD 08:00:48 09:46:06 Justin o n 2020-07-08 2020-07-08 Outpatient EL SAURABH, PATRICIA MDA MDA [id number] MD 09:15:00 09:29:00 Justin o n 2020-07-08 2020-07-08 Outpatient EL BRINK, MDA MDA [id number] MD 06:22:39 09:14:00 GIOVANY Justin o n 2020-07-03 2020-07-03 Outpatient MDA MDA [id number] MD 09:13:53 09:13:53 Justin o n 2020-07-03 2020-07-03 Outpatient MDA MDA [id number] MD 09:13:49 09:13:49 Justin o n 2020-06-27 2020-06-27 Outpatient EL BRINK, MDA MDA [id number] MD 11:00:00 23:59:00 GIOVANY Justin o n 2020-06-26 2020-06-26 Outpatient EL BRINK, MDA MDA [id number] MD 07:15:34 23:59:00 GIOVANY Justin o n 2020-06-26 2020-06-26 Outpatient EL BRINK, MDA MDA [id number] MD 07:10:05 07:14:00 GIOVANY Justin o n 2020-06-12 2020-06-12 Outpatient EL ANTONOFF, MDA MDA [id number] MD 12:54:58 23:59:00 DOROTA Justin o n 2020-06-12 2020-06-12 Outpatient EL BRUERA, MDA MDA [id number] MD 11:34:16 12:59:30 EDMUNDO Justin o n 2020-06-12 2020-06-12 Outpatient EL ANTONOFF, MDA MDA [id number] MD 07:59:57 12:53:00 DOROTA Justin o n 2020-06-12 2020-06-12 Outpatient EL SAURABH, PATRICIA MDA MDA [id number] MD 09:10:14 11:29:26 Justin o n 2020-06-12 2020-06-12 Outpatient EL MDA MDA [id number] MD 08:43:15 08:43:15 Justin o n 2020-06-12 2020-06-12 Outpatient EL MDA MDA [id number] MD 08:43:07 08:43:07 Justin o n 2020-06-12 2020-06-12 Outpatient EL BRINK, MDA MDA [id number] MD 07:19:28 07:58:00 GIOVANY Justin o n 2020-06-10 2020-06-10 Outpatient EL BRINK, MDA MDA [id number] MD 17:45:00 23:59:00 GIOVANY Justin o n 2020-05-29 2020-05-29 Outpatient EL SAURABH, PATRICIA MDA MDA [id number] MD 00:00:00 00:00:00 Justin o najma 2020-05-29 2020-05-29 Outpatient EL BRINK, MDA MDA [id number] MD 00:00:00 00:00:00 GIOVANY Justin o n 2020-05-28 2020-05-28 Outpatient EL ANTONOFF, MDA MDA [id number] MD 00:00:00 00:00:00 DOROTA Justin o n 2020-05-28 2020-05-28 Outpatient EL BRINK, MDA MDA [id number] MD 00:00:00 00:00:00 GIOVANY Justin o n 2020-05-28 2020-05-28 Outpatient EL AHSAN, MDA MDA [id number] MD 00:00:00 00:00:00 PARDEEP Justin o n 2020-05-27 2020-05-27 Outpatient EL BRINK, MDA MDA [id number] MD 00:00:00 00:00:00 GIOVANY Justin o n 2020-05-27 2020-05-27 Outpatient EL BRINK, MDA MDA [id number] MD 00:00:00 00:00:00 GIOVANY Justin o n 2020-05-22 2020-05-22 Outpatient EL SAURABH, PATRICIA MDA MDA [id number] MD 11:00:00 23:59:00 Justin o najma 2020-05-22 2020-05-22 Outpatient EL SARUABH, PATRICIA MDA MDA [id number] MD 09:04:25 11:00:59 Justin o n 2020-05-22 2020-05-22 Outpatient EL SAURABH, PATRICIA MDA MDA [id number] MD 10:45:00 10:59:00 Justin o najma 2020-05-22 2020-05-22 Outpatient EL BRINK, MDA MDA [id number] MD 07:20:41 10:44:00 GIOVANY Justin o n 2020-05-09 2020-05-09 Outpatient EL BRINK, MDA MDA [id number] MD 00:00:00 00:00:00 GIOVANY Justin o n 2020-05-08 2020-05-08 Outpatient EL SAURABH, PATRICIA MDA MDA [id number] MD 00:00:00 00:00:00 Justin o n 2020-05-08 2020-05-08 Outpatient EL BRINK, MDA MDA [id number] MD 00:00:00 00:00:00 GIOVANY Justin o najma 2020-05-08 2020-05-08 Outpatient EL SAURABH, PATRICIA MDA MDA [id number] MD 00:00:00 00:00:00 Justin o najma 2020-05-08 2020-05-08 Outpatient EL TANCO, MDA MDA [id number] MD 00:00:00 00:00:00 STEPHENIEERIK Jered aguilaro najma 2020-05-08 2020-05-08 Outpatient EL SAURABH, PATRICIA MDA MDA [id number] MD 00:00:00 00:00:00 Justin o najma 2020-05-08 2020-05-08 Outpatient EL AHSAN, MDA MDA [id number] MD 00:00:00 00:00:00 PARDEEP Anderson o najma 2020-04-24 2020-04-24 Outpatient EL SAURABH, PATRICIA MDA MDA [id number] MD 08:44:03 23:59:00 Justin o najma 2020-04-24 2020-04-24 Outpatient EL BRINK, MDA MDA [id number] MD 07:55:20 11:58:34 GIOVANY Justin o n 2020-04-24 2020-04-24 Outpatient EL SAURABH, PATRICIA MDA MDA [id number] MD 06:48:04 08:43:00 Justin o najma 2020-04-18 2020-04-18 Outpatient EL BRINK, MDA MDA [id number] 15:53:02 23:59:00 GIOVANYHEIDY yao 2020-04-17 2020-04-17 Outpatient EL SAURABH, PATRICIA MDA MDA [id number] MD 09:24:28 11:14:47 Justin yao 2020-04-17 2020-04-17 Outpatient EL BRINK, MDA MDA [id number] MD 10:15:00 10:15:00 GIOVANY Justin yao 2020-04-17 2020-04-17 Outpatient EL BRINK, MDA MDA [id number] MD 10:15:00 10:15:00 GIOVANYHEIDY yao 2020-04-17 2020-04-17 Outpatient EL MDA MDA [id number] MD 08:58:42 08:58:42 Justin yao 2020-04-17 2020-04-17 Outpatient EL SAURABH, PATRICIA MDA MDA [id number] MD 00:00:00 00:00:00 Justin yao 2020-04-17 2020-04-17 Outpatient EL HUEN, AURIS MDA MDA [id number] MD 00:00:00 00:00:00 Justin yao 2020-04-17 2020-04-17 Outpatient EL SAURABH, PATRICIA MDA MDA [id number] MD 00:00:00 00:00:00 Justin yao 2020-04-16 2020-04-16 Outpatient EL BRINK, MDA MDA [id number] MD 08:30:00 23:59:00 GIOVANY yao 2020-04-16 2020-04-16 Outpatient EL BRINK, MDA MDA [id number] MD 07:45:00 08:29:00 GIOVANYHEIDY yao 2020-04-16 2020-04-16 Outpatient EL MDA MDA [id number] MD 08:28:26 08:28:26 Justin o najma 2020-04-16 2020-04-16 Outpatient EL BRINK, MDA MDA [id number] MD 06:30:00 07:44:00 GIOVANYHEIDY yao 2020-04-16 2020-04-16 Outpatient EL BRINK, MDA MDA [id number] MD 06:15:00 06:29:00 GIOVANY Justin o najma 2020-04-10 2020-04-10 Outpatient EL SAURABH, PATRICIA MDA MDA [id number] MD 00:00:00 00:00:00 Justin yao 2020-04-10 2020-04-10 Outpatient EL BRINK, MDA MDA [id number] MD 00:00:00 00:00:00 GIOVANY Justin o n 2020-04-01 2020-04-01 Outpatient EL SAURABH, PATRICIA MDA MDA [id number] MD 10:59:53 12:04:28 Justin o n 2020-04-01 2020-04-01 Outpatient EL BRINK, MDA MDA [id number] MD 10:05:26 10:05:26 GIOVANY Justin o n 2020-04-01 2020-04-01 Outpatient EL MDA MDA [id number] MD 07:52:25 07:52:25 Justin o n 2020-04-01 2020-04-01 Outpatient EL MDA MDA [id number] MD 07:52:13 07:52:13 Justin o n 2020-04-01 2020-04-01 Outpatient EL BRINK, MDA MDA [id number] MD 07:47:08 07:47:08 GIOVANY Justin o n 2020-03-31 2020-03-31 Outpatient EL BRINK, MDA MDA [id number] MD 17:04:57 23:59:00 GIOVANY Justin o n 2020-03-31 2020-03-31 Outpatient EL URSCHEL, MDA MDA [id number] MD 16:30:00 17:03:00 PEDRO Bobby so najma 2020-03-20 2020-03-20 Outpatient EL SAURABH, PATRICIA MDA MDA [id number] MD 10:20:13 23:59:00 Justin o najma 2020-03-20 2020-03-20 Outpatient EL BRINK, MDA MDA [id number] 07:30:00 10:19:00 GIOVANY Justin o n 2020-03-20 2020-03-20 Outpatient EL SAURAHB, PATRICIA MDA MDA [id number] MD 08:56:07 10:08:37 Justin o n 2020-03-20 2020-03-20 Outpatient EL SAURABH, PATRICIA MDA MDA [id number] MD 00:00:00 00:00:00 Justin o n 2020-03-12 2020-03-12 Outpatient EL SAURABH, PATRICIA MDA MDA [id number] 13:44:09 23:59:00 Justin o najma 2020-02-28 2020-02-28 Outpatient EL ANTONOFF, MDA MDA [id number] 11:45:09 23:59:00 DOROTA yao 2020-02-28 2020-02-28 Outpatient MIRNA YATES, MDA MDA [id number] 10:45:00 11:43:00 GIOVANY yao 2020-02-28 2020-02-28 Outpatient MIRAN YATES, MDA MDA [id number] 08:15:00 10:44:00 GIOVANY yao 2020-02-28 2020-02-28 Outpatient MDA MDA [id number] 06:14:05 06:14:05 Justin yao 2019-10-18 2019-10-18 [facility] [id number] 08:56:00 11:30:00 Encounter [place] [place] [id number] [facility] [id number] Surgical [id number] Center [id number] Results This patient has no known results.
[2020-10-18 08:24] VITALS: BMI 39.1
[2020-10-18] MEDS ORDERED: NA CHLORIDE 0.9% 250 ML ONE ×3 (08:56→13:12)
[2020-10-18 16:39] LABS: Hematocrit 27.9 % (36.0-45.0)
[2020-10-18] MEDS ORDERED: HEPARIN 500 UNIT/5 ML SYR IV ONE (16:40)
[2020-10-18 16:41] VITALS: BP 126/60; TEMP 98.5; O2SAT 97
== END 2020-10-18 16:37 | disposition home health service (06) ==
LOC: DS 07:42
PROVIDERS: ATTEND Internal Medicine
PROC: 30233N1 Transfusion of Nonautologous Red Blood Cells into Peripheral Vein, Percutaneous Approach (ICD-10-PCS; principal; 2020-10-18)
DX: D64.9 Anemia, unspecified (principal)
CPT/HCPCS: 36415; 86900; 86850; 86901; 85018; 85014; 36430 ×2; J1642; P9016 ×2; J7050 ×3; P9099

== ENCOUNTER 2020-12-20 15:04 | Observation (INO) | payer OTHER, MEDICARE ==
--- OUTSIDE RECORDS SUMMARY | 2020-12-20 16:57 | XMS REPORT | Continuity of Care Document ---
:1940 Author Organization [facility] t Address [address] [place] [address] [address]. [address] [place] [address] Care Team Providers Name Role Phone ANTONOFF Primary Care Physician Unavailable SYSTEM, NOT IN Attending Clinician Unavailable SAURABH Attending Clinician Unavailable BEST Attending Clinician Unavailable TRUDY Attending Clinician Unavailable EL Attending Clinician Unavailable BIBI Attending Clinician Unavailable DAKSHA SAAVEDRA Attending Clinician Unavailable Cristal SARAVIA Attending Clinician [...] Expiration Date S maureen MEDICARE PART A [id number] 2007 AND B 00:00:00 A[employer]-SECONDARY [id number] 2007 ONLY 00:00:00 Problems Condition Condition Condition Status Onset Resolution Last Treating Co mments Source Name Details Category Date Date Treatment Clinician Date Pleural Pleural Disease Active 2015-09 [place] effusion, effusion, 0-20 Meth jeaneth right right 00:00: st 00 Hiatal Hiatal Disease Active [place] hernia hernia 9-02 Methodi 00:00: st 00 Anemia Anemia Disease Active [place] 02-03 Methodi 00:00: st 00 Syncope Syncope Disease Active [place] 02-03 Methodi 00:00: st 00 H/O: upper H/O: upper Disease Active [facility] GI bleed GI bleed 5-24 Method i 00:00: st Essential Essential Disease Active Trina ston hypertensi hypertensi 5-24 Me thodi on on 00:00: st 00 Chronic Chronic Disease Active [place] diastolic diastolic 5-24 Meth jeaneth congestive congestive 00:00: st heart heart 00 failure failure Iron Iron Disease Active [place] deficiency deficiency 5-24 Me thodi anemia anemia 00:00: st 00 Peptic Peptic Disease Active [place] ulcer of ulcer of 1-20 Method i stomach stomach 00:00: st 00 Adult body Adult body Disease Active [facility] mass index mass index 1-05 Me thodi greater greater 00:00: st than 30 than 30 00 Hypothyroi Hypothyroi Disease Active [facility] dism dism 1-05 Methodi 00:00: st 00 Upper Upper Disease Active [place] gastrointe gastrointe 1-05 Me thodi stinal stinal 00:00: st hemorrhage hemorrhage 00 Gastrointe Gastrointe Disease Active [facility] stinal stinal 1-04 Methodi [...] n 00 OTHER Allergy Active [facility] 2018-0 6-27 Anderso 00:00: n 00 Social History Social Habit Start Date Stop Date Quantity Comments Source Sex Ass[birth year] At [birth year] Say moreno 00:00:00 00:00:00 Medications Ordered Filled Start Stop Current Ordering [...] Name Observation Time Observation Value Comments Source HEIGHT 2020-11-11 09:21:42 154 cm WEIGHT 2020-11-11 09:21:42 98.7 kg WEIGHT 2020-10-02 05:33:14 101.4 kg HEIGHT 2020-09-23 [...] Planned Date Details Comments Source Future Scheduled 2021-04-13 INFLUENZA VACCINE [place] [facility] 00:00:00 [code = INFLUENZA VACCINE] Future Scheduled 2007 65+ PNEUMOCOCCAL [place] [facility] 00:00:00 VACCINE (1 of 1 - PPSV23) [code = 65+ PNEUMOCOCCAL VACCINE (1 of 1 - PPSV23)] Future Scheduled 1992 SHINGLES VACCINES (#1) [facility] 00:00:00 [code = SHINGLES VACCINES (#1)] Future Scheduled 1958 COVID-19 VACCINE (1) [facility] davila [facility] Test 00:00:00 [code = COVID-19 VACCINE (1)] Encounters Start End Encounter Admission Attending Care Care Encounter Source Date/Time Date/Time Type Type Clinicians Facility Department ID 2020-10-27 Outpatient SYSTEM, [facility] [id number] 15:46:22 PROVIDER Justin yao 2020-04-15 Outpatient MDA MDA [id number] 14:16:23 Justino najma 2020-03-09 Outpatient PATRICIA WILEY MDA MDA [id number] 08:05:07 Clif yao 2020-11-11 2020-11-12 Outpatient EL BEST, MDA MDA [id number] MD 15:25:43 06:30:52 DOROTA Anderson o najma 2020-11-11 2020-11-11 Outpatient EL TRUDY, MDA MDA [id number] 07:30:00 23:59:00 GIOVANY Anderson o najma 2020-11-11 2020-11-11 Outpatient MIRNA WILEY, PATRICIA MDA MDA [id number] 09:10:25 10:54:22 Justin o najma 2020-11-10 2020-11-10 Outpatient EL BEST, MDA MDA [id number] MD 17:03:37 17:37:47 DOROTA Anderson o najma 2020-11-08 2020-11-08 Outpatient EL TRUDY, MDA MDA [id number] MD 09:20:00 23:59:00 GIOVANY Anderson o najma 2020-11-08 2020-11-08 Outpatient EL MDA MDA [id number] MD 16:53:50 16:53:50 Justin o najma 2020-11-08 2020-11-08 Outpatient EL MDA MDA [id number] MD 16:53:43 16:53:43 Justin o najma 2020-10-12 2020-10-12 Outpatient EL EL, MDA MDA [id number] 11:09:09 11:26:53 DEVI yao 2020-09-23 2020-10-02 Inpatient ER BIBI, MDA ICT Phase 1 1 [id number] 15:22:00 16:19:00 YING yao 2020-10-01 2020-10-01 Inpatient BEST, MDA MDA [id number] MD 11:10:11 16:41:36 DOROTA yao 2020-09-30 2020-09-30 Inpatient DIDIPAOLO, MDA MDA [id number] 18:59:04 19:29:30 YING Anderson o najma 2020-09-24 2020-09-24 Inpatient RODON MDA MDA [id number] MD 03:33:45 03:50:06 Justin SAAVEDRA 2020-09-02 2020-09-02 Outpatient EL SAURABH, PATRICIA MDA MDA [id number] MD 11:30:00 23:59:00 Justin o najma 2020-09-02 2020-09-02 Outpatient EL SAURABH, PATRICIA MDA MDA [id number] MD 10:25:11 12:58:05 Justin o n 2020-09-02 2020-09-02 Outpatient EL SAURABH, PATRICIA MDA MDA [id number] MD 06:15:00 11:29:00 Justin o n 2020-09-02 2020-09-02 Outpatient EL MDA MDA [id number] MD 08:26:44 08:26:44 Justin o n 2020-09-02 2020-09-02 Outpatient EL MDA MDA [id number] MD 08:26:40 08:26:40 Justin o najma 2020-08-30 2020-08-30 Outpatient EL BRINK, MDA MDA [id number] MD 10:35:00 23:59:00 GIOVANY Andujarers o najma 2020-08-30 2020-08-30 Outpatient EL BRINK, MDA MDA [id number] MD 06:59:24 10:34:00 GIOVANY Justin o najma 2020-08-30 2020-08-30 Outpatient EL SARAVIA, MDA MDA [id number] MD 06:15:00 06:58:00 ROBERT Anderson o najma 2020-08-26 2020-08-26 Outpatient EL BRINK, MDA MDA [id number] 07:15:00 23:59:00 GIOVANY Justin o najma 2020-08-26 2020-08-26 Outpatient EL SAURABH, PATRICIA MDA MDA [id number] MD 08:50:35 10:07:05 Justin o najma 2020-08-19 2020-08-19 Outpatient EL ANTONOFF, MDA MDA [id number] MD 10:15:00 23:59:00 DOROTA Anderson o najma 2020-08-19 2020-08-19 Outpatient EL BRINK, MDA MDA [id number] MD 07:15:00 10:14:00 GIOVANY Andujarers o najma 2020-08-12 2020-08-12 Outpatient EL BRINK, MDA MDA [id number] MD 06:15:00 23:59:00 GIOVANY Justin o n 2020-08-05 2020-08-05 Outpatient EL DAYA BAKER MDA MDA [id number] MD 14:25:34 15:37:53 Justin o n 2020-08-05 2020-08-05 Outpatient EL SAURABH, PATRICIA MDA MDA [id number] MD 12:00:00 12:00:00 Justin o n 2020-08-05 2020-08-05 Outpatient EL SAURABH, PATRICIA MDA MDA [id number] MD 12:00:00 12:00:00 Justin o n 2020-08-05 2020-08-05 Outpatient EL BRINK, MDA MDA [id number] MD 09:30:00 11:59:00 GIOVANY Justin o n 2020-08-05 2020-08-05 Outpatient EL SAURABH, PATRICIA MDA MDA [id number] MD 09:11:57 09:29:00 Justin o n 2020-07-29 2020-07-29 Outpatient EL TRISTIN SHANKS MDA MDA [id number] MD 11:36:46 14:22:42 Justin o n 2020-07-29 2020-07-29 Outpatient EL BRINK, MDA MDA [id number] MD 07:58:57 09:49:46 GIOVANY Justin o n 2020-07-29 2020-07-29 Outpatient EL SAURABH, PATRICIA MDA MDA [id number] MD 09:00:00 09:00:00 Justin o n 2020-07-29 2020-07-29 Outpatient EL SAURABH, PATRICIA MDA MDA [id number] MD 09:00:00 09:00:00 Justin o n 2020-07-29 2020-07-29 Outpatient EL SAURABH, PATRICIA MDA MDA [id number] MD 06:15:00 08:59:00 Justin o n 2020-07-15 2020-07-22 Inpatient UR DUMBRAVA, MDA ICT Phase 1 10 [id number] MD 08:37:00 15:40:00 ECRUSTY aguilaro n 2020-07-15 2020-07-15 Outpatient EL SAURABH, PATRICIA MDA MDA [id number] MD 10:30:00 23:59:00 Justin o n 2020-07-15 2020-07-15 Outpatient EL BRINK, MDA MDA [id number] MD 08:13:02 08:53:46 GIOVANY Justin o n 2020-07-15 2020-07-15 Outpatient EL SAURABH, PTARICIA MDA MDA [id number] MD 06:30:00 08:36:00 Justin o n 2020-07-12 2020-07-12 Outpatient EL SAURABH, PATRICIA MDA MDA [id number] MD 08:37:58 23:59:00 Ujstin o n 2020-07-12 2020-07-12 Outpatient EL SAURABH, PATRICIA MDA MDA [id number] MD 08:37:32 23:59:00 Justin o n 2020-07-12 2020-07-12 Outpatient EL BRINK, MDA MDA [id number] MD 07:53:37 08:50:09 GIOVANY Justin o n 2020-07-12 2020-07-12 Outpatient EL BRINK, MDA MDA [id number] MD 06:13:59 08:36:00 GIOVANY Justin o n 2020-07-10 2020-07-10 Outpatient EL SAURABH, PATRICIA MDA MDA [id number] MD 10:19:31 23:59:00 Justin o n 2020-07-10 2020-07-10 Outpatient EL SAURABH, PATRICIA MDA MDA [id number] MD 10:18:11 10:18:11 Justin o n 2020-07-10 2020-07-10 Outpatient EL BRINK, MDA MDA [id number] MD 09:26:15 10:17:12 GIOVANY Justin o n 2020-07-10 2020-07-10 Outpatient EL BRINK, MDA MDA [id number] MD 07:29:26 10:17:00 GIOVANY Justin o n 2020-07-08 2020-07-08 Outpatient EL BRINK, MDA MDA [id number] MD 09:30:00 23:59:00 GIOVANY Justin o n 2020-07-08 2020-07-08 Outpatient EL SAURABH, PATRICIA MDA MDA [id number] MD 08:00:48 09:46:06 Justin o n 2020-07-08 2020-07-08 Outpatient EL SAURABH, PATRICIA MDA MDA [id number] MD 09:15:00 09:29:00 Justin o n 2020-07-08 2020-07-08 Outpatient EL BRINK, MDA MDA [id number] MD 06:22:39 09:14:00 GIOVANY Justin o n 2020-07-03 2020-07-03 Outpatient MDA MDA [id number] MD 09:13:53 09:13:53 Justin o n 2020-07-03 2020-07-03 Outpatient MDA MDA [id number] MD 09:13:49 09:13:49 Justin o n 2020-06-27 2020-06-27 Outpatient EL BRINK, MDA MDA [id number] MD 11:00:00 23:59:00 GIOVANY Justin o n 2020-06-26 2020-06-26 Outpatient EL BRINK, MDA MDA [id number] MD 07:15:34 23:59:00 GIOVANY Justin o n 2020-06-26 2020-06-26 Outpatient EL BRINK, MDA MDA [id number] MD 07:10:05 07:14:00 GIOVANY Justin o n 2020-06-12 2020-06-12 Outpatient EL ANTONOFF, MDA MDA [id number] MD 12:54:58 23:59:00 DOROTA Justin o n 2020-06-12 2020-06-12 Outpatient EL BRUERA, MDA MDA [id number] MD 11:34:16 12:59:30 EDMUNDO Justin o n 2020-06-12 2020-06-12 Outpatient EL ANTONOFF, MDA MDA [id number] MD 07:59:57 12:53:00 DOROTA Justin o n 2020-06-12 2020-06-12 Outpatient EL SAURABH, PATRICIA MDA MDA [id number] MD 09:10:14 11:29:26 Justin o n 2020-06-12 2020-06-12 Outpatient EL MDA MDA [id number] MD 08:43:15 08:43:15 Justin o n 2020-06-12 2020-06-12 Outpatient EL MDA MDA [id number] MD 08:43:07 08:43:07 Justin o n 2020-06-12 2020-06-12 Outpatient EL BRINK, MDA MDA [id number] MD 07:19:28 07:58:00 GIOVANY Justin o n 2020-06-10 2020-06-10 Outpatient EL BRINK, MDA MDA [id number] MD 17:45:00 23:59:00 GIOVANY Justin o n 2020-05-29 2020-05-29 Outpatient EL SAURABH, PATRICIA MDA MDA [id number] MD 00:00:00 00:00:00 Justin o najma 2020-05-29 2020-05-29 Outpatient EL BRINK, MDA MDA [id number] MD 00:00:00 00:00:00 GIOVANY Justin o n 2020-05-28 2020-05-28 Outpatient EL ANTONOFF, MDA MDA [id number] MD 00:00:00 00:00:00 DOROTA Justin o n 2020-05-28 2020-05-28 Outpatient EL BRINK, MDA MDA [id number] MD 00:00:00 00:00:00 GIOVANY Justin o n 2020-05-28 2020-05-28 Outpatient EL AHSAN, MDA MDA [id number] MD 00:00:00 00:00:00 PARDEEP Andujarers o n 2020-05-27 2020-05-27 Outpatient EL BRINK, MDA MDA [id number] MD 00:00:00 00:00:00 GIOVANY Justin o n 2020-05-27 2020-05-27 Outpatient EL BRINK, MDA MDA [id number] MD 00:00:00 00:00:00 GIOVANY Justin o n 2020-05-22 2020-05-22 Outpatient EL SAURABH, PATRICIA MDA MDA [id number] MD 11:00:00 23:59:00 Justin o najma 2020-05-22 2020-05-22 Outpatient EL SAURABH, PATRICIA MDA MDA [id number] MD 09:04:25 11:00:59 Justin o najma 2020-05-22 2020-05-22 Outpatient EL SAURABH, PATRICIA MDA MDA [id number] MD 10:45:00 10:59:00 Justin o n 2020-05-22 2020-05-22 Outpatient EL BRINK, MDA MDA [id number] MD 07:20:41 10:44:00 GIOVANY Justin o n 2020-05-09 2020-05-09 Outpatient EL BRINK, MDA MDA [id number] MD 00:00:00 00:00:00 GIOAVNY Justin o n 2020-05-08 2020-05-08 Outpatient EL SAURABH, PATRICIA MDA MDA [id number] MD 00:00:00 00:00:00 Justin o najma 2020-05-08 2020-05-08 Outpatient EL TANCO, MDA MDA [id number] MD 00:00:00 00:00:00 BASIA Lawton laureno najma 2020-05-08 2020-05-08 Outpatient EL SAURABH, PATRICIA MDA MDA [id number] MD 00:00:00 00:00:00 Justin o n 2020-05-08 2020-05-08 Outpatient EL AHSAN, MDA MDA [id number] MD 00:00:00 00:00:00 PARDEEP Justin o n 2020-05-08 2020-05-08 Outpatient EL SAURABH, PATRICIA MDA MDA [id number] MD 00:00:00 00:00:00 Justin o n 2020-05-08 2020-05-08 Outpatient EL BRINK, MDA MDA [id number] MD 00:00:00 00:00:00 GIOVANY Justin o n 2020-04-24 2020-04-24 Outpatient EL SAURABH, PATRICIA MDA MDA [id number] MD 08:44:03 23:59:00 Justin o n 2020-04-24 2020-04-24 Outpatient EL BRINK, MDA MDA [id number] MD 07:55:20 11:58:34 GIOVANY Justin o n 2020-04-24 2020-04-24 Outpatient EL SAURABH, PATRICIA MDA MDA [id number] MD 06:48:04 08:43:00 Justin o najma 2020-04-18 2020-04-18 Outpatient EL BRINK, MDA MDA [id number] MD 15:53:02 23:59:00 GIOVANY Justin o n 2020-04-17 2020-04-17 Outpatient EL SAURABH, PATRICIA MDA MDA [id number] MD 09:24:28 11:14:47 Justin o najma 2020-04-17 2020-04-17 Outpatient EL BRINK, MDA MDA [id number] MD 10:15:00 10:15:00 GIOVANY Justin o n 2020-04-17 2020-04-17 Outpatient EL BRINK, MDA MDA [id number] MD 10:15:00 10:15:00 GIOVANY Justin o n 2020-04-17 2020-04-17 Outpatient EL MDA MDA [id number] MD 08:58:42 08:58:42 Justin o najma 2020-04-17 2020-04-17 Outpatient EL SAURABH, PATRICIA MDA MDA [id number] MD 00:00:00 00:00:00 Justin o najma 2020-04-17 2020-04-17 Outpatient EL HUEN, AURIS MDA MDA [id number] MD 00:00:00 00:00:00 Justin o najma 2020-04-17 2020-04-17 Outpatient EL SAURABH, PATRICIA MDA MDA [id number] MD 00:00:00 00:00:00 Justin o najma 2020-04-16 2020-04-16 Outpatient EL BRINK, MDA MDA [id number] MD 08:30:00 23:59:00 GIOVANY Justin o najma 2020-04-16 2020-04-16 Outpatient EL BRINK, MDA MDA [id number] MD 07:45:00 08:29:00 GIOVANY Justin o najma 2020-04-16 2020-04-16 Outpatient EL MDA MDA [id number] MD 08:28:26 08:28:26 Justin o najma 2020-04-16 2020-04-16 Outpatient EL BRINK, MDA MDA [id number] MD 06:30:00 07:44:00 GIOVANY Justin o n 2020-04-16 2020-04-16 Outpatient EL BRINK, MDA MDA [id number] MD 06:15:00 06:29:00 GIOVANY Justin o najma 2020-04-10 2020-04-10 Outpatient EL SAURABH, PATRICIA MDA MDA [id number] MD 00:00:00 00:00:00 Justin o najma 2020-04-10 2020-04-10 Outpatient EL BRINK, MDA MDA [id number] MD 00:00:00 00:00:00 GIOVANY Justin o n 2020-04-01 2020-04-01 Outpatient EL SAURABH, PATRICIA MDA MDA [id number] MD 10:59:53 12:04:28 Justin o najma 2020-04-01 2020-04-01 Outpatient EL BRINK, MDA MDA [id number] MD 10:05:26 10:05:26 GIOVANY Justin o n 2020-04-01 2020-04-01 Outpatient EL MDA MDA [id number] MD 07:52:25 07:52:25 Justin o najma 2020-04-01 2020-04-01 Outpatient EL MDA MDA [id number] MD 07:52:13 07:52:13 Justin o n 2020-04-01 2020-04-01 Outpatient EL BRINK, MDA MDA [id number] MD 07:47:08 07:47:08 GIOVANY Justin o n 2020-03-31 2020-03-31 Outpatient EL BRINK, MDA MDA [id number] MD 17:04:57 23:59:00 GIOVANY Justin o n 2020-03-31 2020-03-31 Outpatient EL URSCHEL, MDA MDA [id number] MD 16:30:00 17:03:00 PEDRO Kanu so n 2020-03-20 2020-03-20 Outpatient EL SAURABH, PATRICIA MDA MDA [id number] MD 10:20:13 23:59:00 Justin o najma 2020-03-20 2020-03-20 Outpatient EL BRINK, MDA MDA [id number] MD 07:30:00 10:19:00 GIOVANY Justin o n 2020-03-20 2020-03-20 Outpatient EL SAURABH, PATRICIA MDA MDA [id number] MD 08:56:07 10:08:37 Justin o n 2020-03-20 2020-03-20 Outpatient EL SAURABH, PATRICIA MDA MDA [id number] MD 00:00:00 00:00:00 Justin o najma 2020-03-12 2020-03-12 Outpatient EL SAURABH, PATRICIA MDA MDA [id number] MD 13:44:09 23:59:00 Justin o najma 2020-02-28 2020-02-28 Outpatient EL ANTONOFF, MDA MDA [id number] MD 11:45:09 23:59:00 DOROTA Justin o n 2020-02-28 2020-02-28 Outpatient EL BRINK, MDA MDA [id number] MD 10:45:00 11:43:00 GIOVANY Justin o n 2020-02-28 2020-02-28 Outpatient EL BRINK, MDA MDA [id number] MD 08:15:00 10:44:00 GIOVANY Justin o n 2020-02-28 2020-02-28 Outpatient EL MDA MDA [id number] MD 06:14:05 06:14:05 Justin o n 2019-10-18 2019-10-18 [facility] [id number] 08:56:00 11:30:00 Encounter [place] [id number] [facility] [id number] Surgical [id number] Center [id number] Results This patient has no known results.
[2020-12-20] MEDS ORDERED: FUROSEMIDE 40 MG/4 ML VIAL IV ONE (18:00)
[2020-12-20] MEDS ORDERED: DIPHENHYDRAMINE 25 MG TAB/CAP PO ONE (18:00)
[2020-12-20] MEDS ORDERED: ACETAMINOPHEN 325 MG TABLET PO ONE (18:00)
[2020-12-20] MEDS ORDERED: NA CHLORIDE 0.9% 500 ML ONE (20:14)
[2020-12-20] MEDS ORDERED: FUROSEMIDE 40 MG/4 ML VIAL ONE (23:23)
[2020-12-21 04:52] VITALS: BP 149/73; TEMP 97.1; O2SAT 100
--- NOTE | 2021-01-23 09:33 | SS ---
Date of Admission: 12/20/2020 Date of Discharge: 12/21/2020 Chief Complaint: Anemia. History Of Present Illness: This is a 80-year-old pleasant female patient, who had outpatient blood work done on 12/19/2020 and it came back with hemoglobin of 6.7. The patient has had a prior history of blood transfusion due to severe anemia like this. Once we received this outpatient blood work results, she was admitted to the hospital. When I contacted commercial housekeeper to arrange for blood transfusion, I was told that she will be treated as a same-day surgery patient and there was no need for me to do any dictation so that is why this dictation was not done in the past. 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 Past Surgical History: Cataract surgery, tonsillectomy, thyroidectomy, laparoscopic surgery, hysterectomy. Family History: Father , had diabetes and pneumonia. Mother , had Alzheimer disease, heart disease, hypertension, osteoporosis. Brother had diabetes. Social History: Prior history of smoking. Alcohol use rarely. Physical Examination: There was no physical exam done. As stated above, the patient was supposed to be treated as a same-day surgery patient, so I did not see the patient during this hospital stay. Hospital Course: After the patient was admitted to the hospital, blood transfusion was given as per order and her post-transfusion hemoglobin was 8.9. The patient tolerated transfusion very well. She was discharged to go home in stable condition. Final Diagnoses: 1. Anemia, iron deficiency, due to chronic gastrointestinal blood loss. 2. Cancer of esophagus with metastatic disease to lung and liver. 3. Hypertension. 4. Hypothyroidism. 5. Hyperlipidemia. 6. Impaired fasting glucose. 7. Lumbar radiculopathy. SULEMAN/MODL Voice ID: [id number] Report ID: [id number] MARLEN
== END 2020-12-21 04:30 | disposition home or self-care (01) ==
LOC: DS 15:04 → 2ND-WC 16:53
PROVIDERS: ADMIT Internal Medicine; ATTEND Internal Medicine
PROC: 30233N1 Transfusion of Nonautologous Red Blood Cells into Peripheral Vein, Percutaneous Approach (ICD-10-PCS; principal; 2020-12-20)
DX: D64.9 Anemia, unspecified (principal); Z20.822 Contact with and (suspected) exposure to COVID-19
CPT/HCPCS: 36415; 86900; 86850; 86901; 85018; 85014; 36430; U0003; J1940; P9016 ×2; J7040; G0378